=== PATIENT | female | born 1945 | race Caucasian/White ===

== ENCOUNTER 2018-07-04 10:13 | Day surgery (SDC) | payer MEDICARE, BC ==
[~2018-07-04] VITALS: Ht 162.6 cm; Wt 76.4 kg
[2018-07-04 10:48] LABS: BASOPHILS 0.2 % (0-2); HEMATOCRIT 40.2 % (36.0-48.0); HEMOGLOBIN 13.4 g/dL (12-16); IMMATURE GRANULOCYTES 0.2 % (0-5); LYMPHOCYTES 19.7 % (15-50); MCH 27.6 pg (26.0-34.0); MCHC 33.3 g/dL (31.0-37.0); MCV 82.9 fL (80.0-100.0); MEAN PLATELET VOLUME 11.1 fL (7.4-10.4); MONOCYTES 7.2 % (2-11); NEUTROPHILS 71.7 % (40-80); PLATELET COUNT 314 10x3/uL (130-400); RBC 4.85 10x6/uL (4.00-5.40); RDW 15.3 % (11.5-14.5)
[2018-07-04 10:55] LABS: ANION GAP 14.7 mmol/L (8-16); CARBON DIOXIDE 28.5 mmol/L (21.0-32.0); POTASSIUM - SERUM 3.2 mmol/L (3.5-5.1)
[2018-07-04] MEDS ORDERED: SYNTHROID112 MCG PO (11:43)
[2018-07-04] MEDS ORDERED: GLUCOPHAGE500 MG PO (11:44)
[2018-07-04] MEDS ORDERED: LOSARTAN-HCTZ1 EAC2 PO (11:45)
[2018-07-04] MEDS ORDERED: NORVASC10 MG PO (11:45)
[2018-07-04] MEDS ORDERED: PRAVACHOL80 MG PO (11:46)
[2018-07-04] MEDS ORDERED: LOSARTAN POTASS25 MG PO (11:46)
[2018-07-04] MEDS ORDERED: CATAPRES0.2 MG PO (11:47)
[2018-07-04 11:54] VITALS: Ht 162.6 cm; Wt 76.4 kg
--- NOTE | 2018-07-04 16:16 | NUR ---
JACOB WITH RADIOLOGY CALLED TO INFORM THAT PT IS NEGATIVE FOR FREE AIR. DC INSTRUCTIONS GIVEN TO PT/FAMILY. STATE UNDERSTANDING. DC'D IV CATH FULLY INTACT.
--- NOTE | 2018-07-04 16:17 | NUR ---
PT LEFT UNIT VIA WC AT 1628
--- NOTE | 2018-07-05 16:06 | OP ---
PATIENT NAME: JOSHUA MCCAIN MEDICAL RECORD: [id number] :45 LOCATION:D.OPS ADMISSION DATE: SURGEON: MANJINDER PHELPS MD DATE OF OPERATION: 07/04/2018 PREOPERATIVE DIAGNOSES: 1. History of a complex polyp at 15 cm. 2. Anorectal mass. POSTOPERATIVE DIAGNOSES: 1. History of a complex polyp at 15 cm. 2. Anorectal mass. 3. Additional sessile polyp, 9 mm. PROCEDURES: 1. Total colonoscopy to cecum. 2. Endoscopic mucosal resection and polypectomy times 1. 3. Endoscopic submucosal epinephrine injection. 4. Application of 3 endoscopic clips for hemostasis control. 5. Endoscopic tattooing proximal and distal to the 15-cm polyp. 6. Hot biopsy forceps polypectomy times 1. 7. Cold endoscopic biopsies of the anorectal lesion with ablation utilizing argon plasma custom motorcycle painter. SURGEON: Manjinder Phelps MD RETIREMENT MANAGER: None. BLOOD LOSS: Minimal. ANESTHESIA: IV sedation. COMPLICATIONS: None. The risks, possible complications, and alternatives to the procedures were explained to the patient. She elects to proceed. ENDOSCOPIC COURSE: The patient was conveyed to the endoscopy suite electively on 07/04/2018. IV sedation was induced by the anesthesia staff. The patient was placed in the Hamlin position. A digital rectal examination was performed. A colonoscope was inserted through the anus. It was easily advanced to the cecum. The prep was adequate. Upon withdrawal, I irrigated and aspirated extensively. I dragged the folds. A combination of normal imaging and narrow band imaging were utilized. The pullback was greater than a 35-minute pullback. One hot biopsy forceps polypectomy was performed. I then withdrew to 15 cm. I advanced a sclerotherapy needle. A submucosal injection of Eleview was performed. I then performed a submucosal injection through the sclerotherapy needle with epinephrine. This was for postprocedural hemostasis. I advanced an endoscopic snare. I used the endoscopic snare to snare off portions of the polyp. Only about 2% of the polyp remained after I had snared the polyp from on top of the Eleview pillow. The portions of the polyp was grasped with endoscopic retrieval net and were withdrawn out through the anus sequentially. I then readvanced the endoscope. I visualized that there was a tiny bit of polypoid tissue left. This was ablated utilizing the argon plasma OPERATIVE REPORT [id number] JOSHUA MCCAIN custom motorcycle painter with the right colon setting in the forced mode. For hemostasis, 3 endoscopic clips were then placed in a row. I then tattooed the lesion by inserting my sclerotherapy needle submucosally and injecting Ronda ink proximal and distal to the lesion. I then withdrew into the rectum. Upon retroflexion, there were couple of papilla; however, there was also a glandular area right above the dentate line. This was biopsied with cold endoscopic biopsy forceps and then all the tissue that I could identify was ablated with the argon plasma custom motorcycle painter. Should this prove to be polypoid tissue, it likely would be removed effectively with the procedure for prolapse and hemorrhoids. I then unretroflexed the scope and removed it under direct vision. I will see the patient in my office in 2-3 weeks. We will review the results of all the biopsies then. The patient may require a procedure for prolapse and hemorrhoids. In the least, I would recommend re-colonoscopy in one year due to the complexity of the polyp at 15 cm. TRANSINT:[id number] Voice Confirmation ID: [id number] DOCUMENT ID: [id number] MANJINDER PHELPS MD at 1606 CC: Cee VENEGAS SHAWN [id number] DICTATION DATE: 07/04/18 1524 VARNISH MELTER HELPER: 07/04/[address] [facility] 07/04/18 [facility] [address] [place] [address]
--- NOTE | 2018-07-05 16:06 | HP ---
PATIENT: JOSHUA MCCAIN MEDICAL RECORD: [id number] ACCOUNT: [id number] LOCATION:[facility] : 45 ADMISSION DATE: 07/04/18 PCP: RICHARD PATEL HISTORY AND PHYSICAL EXAMINATION PRINCIPAL DIAGNOSIS: Colon polyps. HISTORY OF PRESENT ILLNESS: The patient has a questionable anorectal polyp. Also family history of colon cancer. Her sister had colon cancer. She has a sigmoid colon polyp. This was a tubulovillous adenoma. I am going to plan for a colonoscopy with endoscopic mucosal resection versus argon plasma coagulation therapy or both of these modalities. HOME MEDICATIONS: Please see the nursing list. ALLERGIES: ASPIRIN AND CODEINE. SOCIAL HISTORY: The patient is a smoker. PAST MEDICAL AND SURGICAL HISTORY: Hypertension; noninsulin-dependent diabetes mellitus; hypothyroidism, on replacement therapy; history of thyroidectomy. PHYSICAL EXAMINATION: GENERAL: The patient does not appear acutely ill. She does not appear chronically ill. VITAL SIGNS: Reviewed. EARS: External ears appear normal. EYES: Extraocular movements are intact. NECK: Trachea is midline. CHEST: No intercostal retractions. PULMONARY: Nonlabored. No stridor. IMPRESSION: History of anorectal polyp as well as polyp of the sigmoid colon. PLAN: Colonoscopy with endoscopic mucosal resection versus argon plasma coagulation therapy or combination of the two modalities. TRANSINT:[id number] Voice Confirmation ID: [id number] DOCUMENT ID: [id number] MANJINDER PHELPS MD at 1606 CC: Cee VENEGAS SHAWN [id number] DICTATION DATE: 07/04/18 1404 ALMOND PASTE MIXER: 07/04/18 1543 [facility] 07/04/18 [facility] [address] [place] [address]
== END 2018-07-04 16:29 | disposition home or self-care (01) ==
LOC: D.OPS 10:13
PROVIDERS: Anesthesiology
DX: K63.5 Polyp of colon (principal); K62.9 Disease of anus and rectum, unspecified

== ENCOUNTER 2019-07-04 05:21 | Day surgery (SDC) | payer MEDICARE, BC ==
[~2019-07-04] VITALS: Ht 162.6 cm; Wt 75.8 kg
--- NOTE | ~2019-07-04 | OP ---
PATIENT NAME: JOSHUA MCCAIN MEDICAL RECORD: [id number] :45 LOCATION:D.OPS ADMISSION DATE: SURGEON: TALHA PHELPS MD DATE OF OPERATION: 07/04/2019 PREOPERATIVE DIAGNOSES: 1. History of colon polyps including a complex polyp at 15 cm. 2. Third-degree internal hemorrhoidal prolapse of the anus. 3. History of an anorectal polyp. POSTOPERATIVE DIAGNOSES: 1. History of colon polyps including a complex polyp at 15 cm. 2. Third-degree internal hemorrhoidal prolapse of the anus. 3. History of an anorectal polyp. 4. No evidence of regrowth or persistence of the polyp and at 15 cm. PROCEDURES: 1. Total colonoscopy to cecum. 2. Procedure for prolapse and hemorrhoids. 3. Cold endoscopic biopsies. SURGEON: Talha Phelps MD FOXING PAINTER: None. BLOOD LOSS: Minimal. ANESTHESIA: General. COMPLICATIONS: None. The procedure for prolapse and hemorrhoids is being performed in order to ensure that any polypoid tissue that is present is removed as an excisional biopsy. OPERATIVE COURSE: The patient was conveyed to the operating room electively on 07/04/2019. General anesthesia was induced by the anesthesia staff. The patient was placed in the Hamlin position. A digital rectal examination was performed. A colonoscope was inserted through the anus. It was easily advanced to the cecum. Upon withdrawal, I irrigated and aspirated extensively. A combination of normal imaging and narrow band imaging were utilized. The pullback was greater than 15-minute pullback. In the area of the scar at 15 cm, cold endoscopic biopsies were performed. I noted no polypoid tissue. No regrowth or persistence of polypoid tissue at 15 cm. I then retreated the area with the argon plasma crowd controller utilizing the right colon setting in the forced mode. I then withdrew into the rectum. A retroflexed view was obtained. I examined the anus and identified several areas where there was a question of some polypoid tissue, which was better seen with narrow band imaging. Utilizing the argon plasma crowd controller,I coagulated few of these spots in order to [place] them for the upcoming procedure for prolapse and hemorrhoids. I then unretroflexed the scope and removed it under direct vision. The patient was then placed in the lithotomy position. The buttocks were taped laterally. The anus and perianal areas were sterilely prepped and draped. A OPERATIVE REPORT [id number] JOSHUA MCCAIN PPH dilator retractor was placed. The retractors sewn in place to the surrounding anoderm with 2-0 silks. I then applied a pursestring suture of 2-0 Prolene 1 cm cephalad to the clear retractor. The PPH stapling device was then inserted with the anvil cephalad to the upper pursestring suture, which was then tightened and tied. The stapling device was engaged. It was held in place for 2 minutes and then fired. Stapling device was then removed with a donut of lower rectal and internal hemorrhoidal tissue. I then examined the rectum and the anus. It appeared that all of these markings had been removed with the surrounding tissue. Therefore, it appears that a full excisional biopsy of this potentially glandular tissue had been performed. Bleeding along the anastomotic staple line was controlled with [id number] 3-0 Vicryls. Gelfoam was applied within the lower rectum and the anus. A combination of Marcaine and steroid preparation were used to infiltrate the perianal tissues. A topical anesthetic was applied to the external hemorrhoids. The patient was then extubated and conveyed to post-anesthesia care unit where she was in stable condition. She will be dismissed home on Colace, tramadol as well as Valium. I will see her in the office in 2-3 weeks. TRANSINT:[id number] Voice Confirmation ID: [id number] DOCUMENT ID: [id number] TALHA PHELPS MD CC: [id number] DICTATION DATE: 07/05/19 1205 TEST CONSULTANT: 07/05/19 1609 [facility] 07/04/19 [facility] [address] [place] [address]
[~2019-07-04 05:21] MED LIST: CATAPRES0.2 MG PO; GLUCOPHAGE500 MG PO; LOSARTAN POTASS25 MG PO; LOSARTAN-HCTZ1 EAC2 PO; NORVASC10 MG PO; PRAVACHOL80 MG PO; SYNTHROID112 MCG PO
[2019-07-04 05:47] LABS: HEMOGLOBIN 11.9 g/dL (12-16); MCH 27.1 pg (26.0-34.0); MCHC 33.1 g/dL (31.0-37.0); MEAN PLATELET VOLUME 10.3 fL (7.4-10.4); RBC 4.39 10x6/uL (4.00-5.40); RDW 15.9 % (11.5-14.5); WBC 10.7 10x3/uL (4.8-10.8)
[2019-07-04 06:06] LABS: ANION GAP 11.6 mmol/L (8-16); CALCIUM 7.7 mg/dL (8.5-10.1); CARBON DIOXIDE 30.1 mmol/L (21.0-32.0); CREATININE - SERUM 0.9 mg/dL (0.6-1.3); POTASSIUM - SERUM 3.7 mmol/L (3.5-5.1)
[2019-07-04] MEDS ORDERED: CELEXA20 MG PO (06:38)
[2019-07-04] MEDS ORDERED: LOSARTAN-HCTZ1 EAC1 PO (06:39)
[2019-07-04 06:45] VITALS: BP 139/64; Ht 162.6 cm; Wt 75.8 kg
--- NOTE | 2019-07-04 12:03 | NUR ---
1150 UP TO BR VOIDS, STATES FEELING DIZZY RETURNS TO BED O2 SAT 86, O2 REPLACED ON 4L NC. LAYING ON LEFT SIDE.
== END 2019-07-04 13:05 | disposition home or self-care (01) ==
LOC: D.OPS 05:21 → D.PAN 08:00 → D.OPS 13:05
PROVIDERS: Anesthesiology; ATTEND Surgery
DX: Z86.010 Personal history of colon polyps (principal); K64.2 Third degree hemorrhoids; Z87.19 Personal history of other diseases of the digestive system; E78.00 Pure hypercholesterolemia, unspecified; Z90.89 Acquired absence of other organs; I10 Essential (primary) hypertension; F17.200 Nicotine dependence, unspecified, uncomplicated; E11.9 Type 2 diabetes mellitus without complications; Z80.0 Family history of malignant neoplasm of digestive organs